=== PATIENT | male | born 1985 | race Caucasian/White ===

== ENCOUNTER → 2020-09-02 | Outpatient (CLI) | payer BC, OTHER | LOC: HYPER 12:42 | PROVIDERS: ATTEND Emergency Medicine | DX: M60.073 Infective myositis, right foot (principal); M85.671 Other cyst of bone, right ankle and foot; M79.671 Pain in right foot; R60.0 Localized edema; Z87.891 Personal history of nicotine dependence ==

== ENCOUNTER → 2020-09-09 | Outpatient (CLI) | payer BC, OTHER | LOC: HYPER 11:50 | PROVIDERS: ATTEND Emergency Medicine | DX: M60.073 Infective myositis, right foot (principal); M85.671 Other cyst of bone, right ankle and foot; M79.671 Pain in right foot; R60.0 Localized edema; Z87.891 Personal history of nicotine dependence ==